=== PATIENT | male | born 1955 | race Caucasian/White ===

== ENCOUNTER 2024-05-13 09:39 | Day surgery (SDC) | payer MEDICARE, BC ==
[~2024-05-13 09:39] MED LIST: Sodium Chloride 0.9% 10 ML Syringe FLUSH PRN; Sodium Chloride 0.9% 10 ML Syringe FLUSH SCH
[2024-05-13] MEDS ORDERED: fentaNYL 100 MCG/2 ML SDV ONE (09:49)
[2024-05-13] MEDS ORDERED: Propofol 200 MG/20 ML SDV ONE (09:50)
[2024-05-13] MEDS ORDERED: Ketamine 200 MG/20 ML MDV ONE ×2 (09:50→11:57)
[2024-05-13] MEDS ORDERED: Lidocaine 1% 5 ML VIAL ONE (09:52)
[2024-05-13] MEDS ORDERED: Rocuronium 50 MG/5 ML Vial ONE (09:52)
[2024-05-13] MEDS ORDERED: Ondansetron 4 MG/2 ML SDV ONE (09:52)
[2024-05-13] MEDS ORDERED: Dexamethasone 4 MG/ML 5 ML MDV ONE (09:53)
[2024-05-13] MEDS ORDERED: ceFAZolin 2 GM Vial ONE (09:53)
[2024-05-13] MEDS: Lactated Ringers 1,000 ML IV SCH (10:31)
[2024-05-13] MEDS: Acetaminophen 325 MG Tab PO ONE (10:39)
[2024-05-13] MEDS: Gabapentin 300 MG Cap PO ONE (10:39)
[2024-05-13] MEDS ORDERED: Sugammadex Sodium 200 MG/2 ML VIAL IV ONE (10:46)
[2024-05-13] MEDS: Bupivacaine 0.5% 30 ML SDV ONE (11:47)
[2024-05-13] MEDS: Lidocaine 1% with EPINEPHrine 1:100,000 20 ML MDV ONE (11:47)
[2024-05-13] MEDS ORDERED: HYDROmorphone 0.5 MG/0.5 ML Syringe IVPUSH PRN (11:50)
[2024-05-13] MEDS ORDERED: Lidocaine 1% 20 ML MDV ONE (11:50)
[2024-05-13] MEDS ORDERED: fentaNYL 100 MCG/2 ML SDV IVPUSH PRN (11:50)
[2024-05-13] MEDS ORDERED: Ondansetron 4 MG/2 ML SDV IVPUSH PRN (11:50)
[2024-05-13] MEDS: EPINEPHrine 1 MG/ML SDV ONE (13:02)
[2024-05-13] MEDS: Acetaminophen/oxyCODONE 325-5 MG Tab PO ONE (15:07)
== END 2024-05-13 16:25 | disposition home or self-care (01) ==
LOC: JD.SDS 09:39
PROVIDERS: ATTEND Surgery
DX: K81.1 Chronic cholecystitis (principal); K82.8 Other specified diseases of gallbladder; E11.22 Type 2 diabetes mellitus with diabetic chronic kidney disease; I12.9 Hypertensive chronic kidney disease with stage 1 through stage 4 chronic kidney disease, or unspecified chronic kidney disease; N18.30 Chronic kidney disease, stage 3 unspecified; E78.5 Hyperlipidemia, unspecified; Z79.899 Other long term (current) drug therapy; Z79.82 Long term (current) use of aspirin; Z79.84 Long term (current) use of oral hypoglycemic drugs
CPT/HCPCS: 47562; A9270; J0171; J0665; J0690; J1100; J2405; J2704; J3010; J3490; J7120; 00790